=== PATIENT | male | born 1960 | race Caucasian/White ===

== ENCOUNTER 2023-12-08 16:13 | Inpatient (IN) | payer BC, SELFPAY ==
[2023-12-08] VITALS (7 sets, daily range): BP systolic 97–149; BP diastolic 66–87; PULSE 88–109; BMI 28.6
[2023-12-08 12:54] LABS: ALT (SGPT) 26 U/L (0-50); AST (SGOT) 22 U/L (17-59); Albumin 4.5 g/dl (3.5-5.0); Alkaline Phosphatase 49 U/L (38-126); Blood Urea Nitrogen 40 mg/dl (9-20); Calcium 10.1 mg/dl (8.4-10.2); Carbon Dioxide 26 mmol/L (22-30); Chloride 103 mmol/L (98-107); Glucose 146 mg/dl (70-99); Sodium 136 mmol/L (135-145); Total Bilirubin 0.5 mg/dl (0.2-1.3); Total Protein 7.1 g/dl (6.3-8.2); eGFR 56.83
[2023-12-08 13:02] LABS: % Basophils 0.9 % (0-2); % Eosinophils 1.5 % (0-6); % Lymphocytes 9.1 % (20.5-51.1); % Monocytes 6.2 % (1.7-9.3); % Neutrophils 81.3 % (42.2-75.2); Absolute Basophils 0.1 10^3/uL (0-0.2); Absolute Eosinophils 0.2 10^3/uL (0-0.7); Absolute Immature Granulocytes 0.1 10^3/uL (0-0.05); Absolute Lymphocytes 1.3 10^3/uL (1.2-3.4); Absolute Monocytes 0.9 10^3/uL (0.1-0.6); Absolute Neutrophils 11.3 10^3/uL (1.4-6.5); Hematocrit 44.9 % (39.0-52.0); Hemoglobin 14.6 g/dL (13.0-18.0); Mean Corp Hgb Conc. 32.5 g/dL (33.0-37.0); Mean Corpuscular Hgb 26.3 pg (27.0-31.0); Mean Corpuscular Volume 80.8 fL (80.0-94.0); Mean Platelet Volume 9.4 fL (7.4-10.4); Nucleated Red Blood Cells % 0 % (-); Platelet Count 645 10^3/uL (130-400); Red Blood Cell Count 5.56 10^6/uL (4.70-6.10); Red Cell Dist. Width 15.1 % (11.5-14.5); White Blood Cell Count 13.9 10^3/uL (4.8-10.8)
--- NOTE | 2023-12-08 15:48 | ED.GENMED ---
History of Present Illness
General
Chief Complaint: Rectal Bleeding
Source: patient
Exam Limitations: none
Time Seen by Provider: 12/08/23 13:33
Travel History
Have you had any contact with someone who has COVID-19?: No
Do you have any symptoms of coronavirus? Fever > 100 degrees, chills, cough, shortness of breath, sore throat, loss of taste or smell, muscle aches, or headache?: No
History of Present Illness
History of Present Illness:
63-year-old male started with rectal bleeding last evening. Multiple episodes. Moderate in amount. Patient was hypotensive is at his physician's office. Some minimal lower abdominal pain. No other complaints. No history. No thinners.
Past History
Past History
ED Past Medical History: Asthma, GERD, Hypercholesterolemia and Psychiatric (Anxiety and depression ); Negative HTN
ED Past Surgical History: Orthopedic and Other (Sinus surgery)
Social History
Tobacco: Non-smoker
Alcohol: None
Drug: None
Personal:
Living: with family
Employment: Employed
Family History
Family History: Hypertension and CAD
Review of Systems
Review of Systems
All Other Systems: Not applicable
Respiratory: Reports no symptoms
ABD/GI: Denies black stools
Phy Exam
Physical Exam
Physical Exam:
GENERAL: Alert and oriented in no apparent distress
EYE: Orbits normal.
NECK: Supple
CARDIAC: Regular rate and rhythm without any obvious murmurs.
LUNGS: Clear breath sounds,normal
ABDOMEN: Soft, without focal tenderness or distention
NEUROLOGICAL: Alert and oriented , grossly non-focal
SKIN: Warm and dry, no rash or lesion, no discoloration, skin intact.
MUSCULOSKELETAL: No edema,no deformity.Good color
PSYCH: Normal and appropriate interaction.
Course
Orders/Labs/Results
Orders:
Orders
12/08/23 12:21
Cardiac Monitoring- Treatment ONCE
IV Insert/Care/Rem.- Treatment PRN
O2 Therapy [RESP] Urgent
Titrate/Wean O2 to maintain O2 sat greater than (%): 93
Special Instructions: MAINTAIN CONTINOUS O2 SATS > OR = 93%
Pulse Ox/spot Check [RESP] Urgent
Quantity: 1
Special Instructions: ON ROOM AIR
12/08/23 12:22
ECG [Electrocardiogram (*1)] Urgent
Reason for Study: Vertigo / Dizzy
EKG- Treatment ONCE
12/08/23 12:32
Type+Screen Urgent
Complete Blood Count/With Diff Urgent
Comprehensive Metabolic Panel Urgent
12/08/23 13:53
CT Abd/Pel (IV only)-DH only Urgent
Comment:
Reason For Exam: Left lower quadrant pain/rectal bleeding
12/08/23 16:04
Admit/Transfer Patient As Directed
Co-Sign Provider:
Level of Care: Inpatient admission
Assign to:: Telemetry
Physician / Group: Dr Coughlin
Diagnosis: GI bleed
Reason for Telemetry: Arrhythmia
Date to Stop Telemetry: 12/11/23
Time to Stop Telemetry: 11:00
Reason for Hospitalization: pte p/w gi bleed and recently hypotensive and anemia and clifford
Expected length of stay greater than two midnights?: Yes
ELOS- Estimated Length of Stay in days: 2
I certify the patient meets the requirements for IP care: Yes
12/08/23 16:06
Code Status As Directed
Resuscitation Status: Full Code
12/11/23 11:00
DC Protocol for Telemetry ONCE
Abnormal Lab Results
12/08/23
12:32
WBC 13.9 H 10^3/uL
(4.8-10.8)
MCH 26.3 L pg
(27.0-31.0)
MCHC 32.5 L g/dL
(33.0-37.0)
RDW 15.1 H %
(11.5-14.5)
Plt Count 645 H 10^3/uL
(130-400)
Abs Immat Gran (auto) 0.1 H 10^3/uL
(0-0.05)
Absolute Neuts (auto) 11.3 H 10^3/uL
(1.4-6.5)
Absolute Monos (auto) 0.9 H 10^3/uL
(0.1-0.6)
Immature Gran % 1.0 H %
(0-0.5)
Neutrophils % 81.3 H %
(42.2-75.2)
Lymphocytes % 9.1 L %
(20.5-51.1)
Potassium 6.0 H mmol/L
(3.5-5.1)
BUN 40 H mg/dl
(9-20)
Creatinine 1.4 H mg/dL
(0.7-1.3)
Glucose 146 H mg/dl
(70-99)
12/08/23 12:32
12/08/23 12:32
Vital Signs
Initial and Last Documented VS:
Initial Vital Signs
Temp Pulse Resp BP Pulse Ox
98.8 F 92 22 113/66 98
12/08/23 12:16 12/08/23 12:16 12/08/23 12:16 12/08/23 12:16 12/08/23 12:16
Last Documented Vital Signs
Temp Pulse Resp BP Pulse Ox
98.8 F 92 16 116/71 95
12/08/23 12:16 12/08/23 14:21 12/08/23 14:21 12/08/23 16:35 12/08/23 16:36
*Radiology
Radiology exam reviewed: radiology read reviewed (Diverticulosis. No diverticulitis)
*Pulse Oximetry
Patient hypoxic: no
*Critical Care Note
Total Time (30-74mins, 75-104mins- exclusive of procedures): Not Applicable
Update Note
Update Note:
Consent signed. No transfusion needed at this time. However patient's picture and description of amount of bleeding is moderate in nature and warrants inpatient management.
ED Attending Note
-
Portions of this chart may have been created with voice recognition software.� Occasional wrong word or��sound alike� substitutions may have occurred due to the inherent limitations of voice recognition software.
Discharge Plan
Departure
Patient Disposition: Admit
Date of Disposition: 12/08/23
Time of Disposition: 15:49
Presentation/result/management discussed w/ accepting MD/DO: Hospitalist
Discharge Problem:
Lower GI bleed
Interventions
Interventions:
*Risk Screen - Suicide Last Done: 12/08/23 12:16
*General Assessment Last Done: 12/08/23 12:16
*Neglect/Abuse Screening Last Done: 12/08/23 12:16
ED- Fall Risk Assessment Last Done: 12/08/23 14:18
LF-Jqvddf-Lwopwzfbtj Assessment Last Done: 12/08/23 14:18
ED- Cardiac Assessment Last Done: 12/08/23 14:18
ED- Pulmonary Assessment Last Done: 12/08/23 14:18
--- NOTE | 2023-12-08 16:08 | HPS.HSE ---
Family Physician
-
Family Physician: Rowan Ladd MD
Chief Complaint
-
Rectal bleeding
History of Present Illness
Patient is 63 years old male with history of hypertension, hyperlipidemia, asthma, diabetes mellitus, presented to the hospital with bright blood per rectum. Patient started having some rectal bleeding since last night with multiple episodes of
painless bleeding. He tells me after treatment he has these multiple episodes and he counted about 10-20 episodes. His blood blood per rectum along with mixed stool. He denies abdominal pain. He did have some nausea but no vomiting or fevers or
chills. No anticoagulants. He does take aspirin on a regular basis. He denies any regular NSAIDs use. No chest pain or shortness of breath. He has had colonoscopies in the past that showed diverticular disease and some adenomas/polyps. In the
ED, hemoglobin 14.6 but that was about 4 hours prior to my evaluation so we will repeat it again stat; also potassium 6 about 4 hours ago so we will repeat stat by the time of my evaluation. He had an abdominal CT scan that shows diverticulosis and
some nonspecific findings in the liver pancreas spleen and kidneys. He was referred to hospitalist for further evaluation.
Medical History
Past Medical History
Past Medical History: Reports Other (Hypertension, hyperlipidemia, diabetes mellitus type 2, asthma.)
Past Surgical History: Reports None
Social History
Tobacco: Non-smoker
Alcohol: Occasional
Drug: None
Family History
Family History: Diabetes and Hypertension
Allergies / Home Medications
Allergies reflects when Allergies were last updated in [email or web address].
Home Medications with original date entered in [email or web address]
Allergy/Medication List:
Allergies
Allergy/AdvReac Type Severity Reaction Status Date / Time
No Known Allergies Allergy Verified 12/08/23 12:16
Home Medications
albuterol sulfate 90 mcg/actuation aerosol inhaler (Proventil HFA) 1 puff inhalation R Q6HPRN PRN sob 09/04/09
montelukast 10 mg tablet 10 mg PO HS 09/04/09
sertraline 100 mg tablet 150 mg PO DAILY 09/04/09
sitagliptin phosphate 50 mg-metformin 1,000 mg tablet (Janumet) 1 tab PO BID 05/16/10
aspirin 81 mg tablet,delayed release 81 mg PO QPM 12/08/23
canagliflozin 100 mg tablet (Invokana) 100 mg PO QPM 12/08/23
ergocalciferol (vitamin D2) 1,250 mcg (50,000 unit) capsule 1,250 mcg PO SA 12/08/23
fenofibrate micronized 67 mg capsule 67 mg PO DAILY 12/08/23
fluticasone propionate 50 mcg/actuation nasal spray,suspension 1 spray intranasal DAILY 12/08/23
losartan 50 mg tablet 50 mg PO DAILY 12/08/23
mometasone-formoterol HFA 200 mcg-5 mcg/actuation aerosol inhaler (Dulera) 2 puff inhalation R BID 12/08/23
nystatin-triamcinolone 100,000 unit/g-0.1 % topical cream 1 applic topical DAILYPRN PRN random hives on body 12/08/23
rabeprazole 20 mg tablet,delayed release (AcipHex) 20 mg PO DAILY 12/08/23
repaglinide 1 mg tablet 1 mg PO BID@0800,1700 12/08/23
repaglinide 1 mg tablet 2 mg PO NOON 12/08/23
rosuvastatin 20 mg tablet (Crestor) 20 mg PO HS 12/08/23
Review of Systems
-
A 12 point ROS was completed and negative except as noted: Yes
Physical Exam
Vital Signs
Vital Signs
Temp Pulse Resp BP Pulse Ox
98.8 F 87 15 103/72 94
12/08/23 12:16 12/08/23 14:15 12/08/23 14:15 12/08/23 14:00 12/08/23 14:15
Physical exam:
General: Acutely ill
HEENT: Normocephalic, Atraumatic and Moist Mucous Membranes
Respiratory: Clear to Auscultation; Negative Wheezes, Rales or Rhonchi
Cardiac: Regular Rhythm and S1/S2
GI: Soft, Nontender and Nondistended
Musculoskeletal: No Clubbing, No Cyanosis and No Edema
Neuro: Awake, Alert and Oriented
Psych: Calm
Physical Exam
General: Other
Laboratory Results
-
12/08/23 12:32
12/08/23 12:32
Laboratory Results
PT Cancelled 12/08/23 12:48
INR Cancelled 12/08/23 12:48
APTT Cancelled 12/08/23 12:48
Total Bilirubin 0.5 mg/dl (0.2-1.3) 12/08/23 12:32
AST 22 U/L (17-59) 12/08/23 12:32
ALT 26 U/L (0-50) 12/08/23 12:32
Alkaline Phosphatase 49 U/L (38-126) 12/08/23 12:32
Impression/Plan
-
IMPRESSION:
Patient is 63 years old male with multiple comorbidities came into the hospital with acute GI bleed. Patient presents with lower GI bleed. He had episode of hypotension prior to admission. He is also in acute kidney injury. Given patient's acute
presentation and comorbidities he is at increased risk of morbidity mortality so he will need to be treated in the hospital and manage accordingly and monitor for progress and or toxicity.
PLAN:
Acute GI bleed:
Suspect lower GI bleed, probably diverticular in nature
Monitor hemoglobin
Clear liquid diet
GI consult (Donaldson texted GI today)
Rule out acute blood loss anemia:
-Blood transfusion consent obtained and type and screen
-Hemoglobin upon admission 14.6 and will repeat stat now
-Monitor hemoglobin every 6 hours and transfuse as needed
Hyperkalemia:
-Repeat potassium stat and will medicate if needed depending on results but it could be hemolysis sample
-Hold ARB
-IV fluids
-Cardiac monitoring
Leukocytosis:
Reactive versus infectious
Monitor trend
Acute kidney injury:
IV fluids, normal saline 100 ml per hour
Check bladder scan as well
Avoid nephrotoxic
Monitor renal function closely
Monitor urine output
Creatinine today 1.4
Last creatinine 1.2 back in 2018
Hypertension:
Hold antihypertensives
Will resume antihypertensive once known blood pressure stable and starts to go up consistently
Hyperlipidemia:
Continue statins
Diabetes mellitus type 2:
Hold oral hypoglycemics
Insulin sliding scale
Monitor blood sugars and adjust medications according
DVT prophylaxis:
SCDs
CODE STATUS:
Full code
Total time spent on today's encounter was 75 minutes which included time spent in counseling the patient/family regarding diagnosis and treatment plan as listed above, goals of care, and symptom management. Case was discussed with nursing staff,
specialists, and care coordinators/case management. All labs and imaging personally reviewed by me. Remainder the time spent in detailed review of previous records, lab data, imaging, and other medical provider documentation.
[2023-12-08 17:04] LABS: Hematocrit 42.2 % (39.0-52.0); Hemoglobin 14.1 g/dL (13.0-18.0)
[2023-12-08 17:17] LABS: Blood Urea Nitrogen 38 mg/dl (9-20); Calcium 9.8 mg/dl (8.4-10.2); Carbon Dioxide 21 mmol/L (22-30); Chloride 105 mmol/L (98-107); Glucose 116 mg/dl (70-99); Potassium 4.9 mmol/L (3.5-5.1); Sodium 133 mmol/L (135-145); eGFR > 60.00
[2023-12-08] MEDS: PROTONIX IV 40 MG IV (18:03)
[2023-12-08] MEDS: NSS (PRESERVATIVE FREE) 10 ML IV (18:03)
[2023-12-08] MEDS: NSS 1000 IV (18:05)
[2023-12-08 18:08] LABS: Glucose - Point of Care 143 mg/dl (70-99)
[2023-12-08] MEDS: SYMBICORT 160/4.5 MCG INHALER 2 PUFF INH (19:36)
[2023-12-08] MEDS: PRANDIN PO (20:00)
[2023-12-08 20:01] LABS: Hematocrit 40.4 % (39.0-52.0); Hemoglobin 13.4 g/dL (13.0-18.0)
[2023-12-08] MEDS: SINGULAIR 10 MG PO (20:01)
[2023-12-08] MEDS: CRESTOR 20 MG PO (20:01)
[2023-12-08 21:57] LABS: Glucose - Point of Care 124 mg/dl (70-99)
[2023-12-09 02:09] LABS: Hematocrit 40.6 % (39.0-52.0); Hemoglobin 13.2 g/dL (13.0-18.0)
[2023-12-09 03:50] VITALS: BP 144/86
[2023-12-09] MEDS: NSS 1000 IV ×2 (04:02→16:07)
[2023-12-09 06:00] VITALS: BMI 28.4
[2023-12-09 07:35] VITALS: BP 128/81; BP 155/80; PULSE 100; PULSE 92
[2023-12-09] MEDS: SYMBICORT 160/4.5 MCG INHALER 2 PUFF INH ×2 (07:35→19:26)
[2023-12-09 08:03] LABS: Glucose - Point of Care 166 mg/dl (70-99)
[2023-12-09] MEDS: TRICOR 48 MG PO (08:34)
[2023-12-09] MEDS: PRANDIN 1 MG PO ×2 (08:34→16:20)
[2023-12-09] MEDS: ZOLOFT 150 MG PO (08:34)
[2023-12-09] MEDS: PROTONIX IV 40 MG IV ×2 (08:35→21:10)
[2023-12-09] MEDS: NSS (PRESERVATIVE FREE) 10 ML IV ×2 (08:35→21:10)
[2023-12-09 08:37] LABS: Hematocrit 42.8 % (39.0-52.0); Hemoglobin 13.7 g/dL (13.0-18.0); Mean Corpuscular Hgb 26.1 pg (27.0-31.0); Mean Corpuscular Volume 81.5 fL (80.0-94.0); Mean Platelet Volume 9.2 fL (7.4-10.4); Platelet Count 548 10^3/uL (130-400); Red Blood Cell Count 5.25 10^6/uL (4.70-6.10); White Blood Cell Count 11.1 10^3/uL (4.8-10.8)
[2023-12-09 08:56] LABS: Blood Urea Nitrogen 29 mg/dl (9-20); Calcium 9.5 mg/dl (8.4-10.2); Carbon Dioxide 21 mmol/L (22-30); Chloride 105 mmol/L (98-107); Estimated Creatinine Clearance 80 ml/min; Glucose 145 mg/dl (70-99); Potassium 4.8 mmol/L (3.5-5.1); Sodium 134 mmol/L (135-145); eGFR > 60.00
--- NOTE | 2023-12-09 09:23 | W.PN.HOSP.TC ---
Today's Communication/Plan
-
Advance diet. Monitor hemoglobin
Assessment / Plan
Assessment / Plan
Physical exam:
General: Well Developed, Well Nourished and No Apparent Distress
HEENT: Normocephalic, Atraumatic and Moist Mucous Membranes
Respiratory: Clear to Auscultation; Negative Wheezes, Rales or Rhonchi
Cardiac: Regular Rhythm and S1/S2
GI: Soft, Nontender and Nondistended
Musculoskeletal: No Clubbing, No Cyanosis and No Edema
Neuro: Awake, Alert and Oriented
Psych: Calm
A/P:
Acute GI bleed:
Suspect lower GI bleed, probably diverticular in nature
Monitor hemoglobin
Clear liquid diet--> advance to full liquid diet today.
GI consult appreciated
Updated at bedside
Rule out acute blood loss anemia:
-Blood transfusion consent obtained and type and screen
-Hemoglobin upon admission 14.6
-Today hemoglobin 13.7
Hyperkalemia due to hemolysis:
Repeated potassium normal
Leukocytosis:
Reactive versus infectious
Monitor trend
Acute kidney injury:
Creatinine 1.2
Creatinine upon admission 1.4
On IV fluids
Hypertension:
Cont to hold antihypertensives and resume in am
Hyperlipidemia:
Continue statins
Diabetes mellitus type 2:
Continue to hold oral hypoglycemics
Insulin sliding scale
Monitor blood sugars and adjust medications according
DVT prophylaxis:
SCDs
CODE STATUS:
Full code
Anticipated Discharge: Within 24 hours
Subjective/Interval History
-
Date of Service: December 09, 2023
No bowel movement today. No abdominal pain nausea or vomiting.
Objective Data
-
Labs:
Laboratory Results
12/09/23 12/09/23 12/09/23
01:57 08:05 08:05
WBC 11.1 H
Hgb 13.2 13.7 Cancelled
Hct 40.6 42.8
Plt Count
Sodium
Potassium
Chloride
Carbon Dioxide
BUN
Creatinine
Glucose
Calcium
12/09/23
08:05
WBC
Hgb
Hct Cancelled
Plt Count 548 H
Sodium 134 L
Potassium 4.8
Chloride 105
Carbon Dioxide 21 L
BUN 29 H
Creatinine 1.2
Glucose 145 H
Calcium 9.5
Vital Signs:
Vital Signs
Temp Pulse Resp BP Pulse Ox
98.6 F 97 16 128/81 95
12/09/23 07:35 12/09/23 07:40 12/09/23 07:40 12/09/23 07:35 12/09/23 07:40
[2023-12-09] MEDS: ANESTHETIC LOZENGE 1 LOZENGE PO (10:17)
[2023-12-09 10:24] LABS: Glycohemoglobin (HgbA1c) 6.9 % (4.0-5.6)
[2023-12-09 11:23] VITALS: BP 121/84; BP 128/84; BP 144/81; PULSE 101; PULSE 112; PULSE 90
[2023-12-09 11:41] LABS: Glucose - Point of Care 141 mg/dl (70-99)
[2023-12-09] MEDS: PRANDIN 2 MG PO (12:20)
--- NOTE | 2023-12-09 12:51 | CON.GI ---
Consultation
-
Date/Time Consultation Requested: 12/08/2023
Date/Time Consultation Performed: 12/09/2023
Requesting Provider: Dr. Coughlin
Performing Provider: Dr. Golden
Reason for Consultation: Rectal bleeding
Medical History
Chief Complaint / HPI
Chief Complaint: Rectal bleeding
History of Present Illness:
63-year-old male with history of high cholesterol, diabetes, asthma presenting with complaints of multiple episodes of dark red bloody bowel movements starting Sunday night, reports having up to 11 or 12 bowel movements up until Sunday morning.
Last bowel movement was Sunday at 9:30 AM. He went to the PCPs office, his blood pressure was noted to be about 82/60 and was asked to come to the emergency room. Prior to this, he reports that he has been having some straining with bowel
movements for couple of days but his normal bowel baseline bowel pattern is 2-5 softly formed stool on a regular daily basis. Occasional wipe type bleeding from hemorrhoids, was seen by colorectal surgery and treated with hemorrhoidal cream and was
doing well. He had some mild discomfort in the lower abdomen but nothing bothersome. No nausea, vomiting, heartburn or trouble swallowing. No NSAID use. No loss of appetite or unintentional weight loss. Was lightheaded and dizzy yesterday but
not since. Movements since Sunday 9:30 AM.
Colonoscopy in June [address] Pickard, diverticulosis, tubular adenomas removed from the ascending, hepatic flexure and descending colons. Colonoscopy with polyps in 2016 and 2012.Upper endoscopy in 2012, no evidence of H. pylori or
eosinophilic esophagitis.
In the emergency room, hemoglobin was noted to be 13.4, today it is 13.7. Mild leukocytosis.
CT angiogram-Diverticulosis. No evidence of acute diverticulitis. Stable Mild fecal material throughout the colon. Improved.Hepatic fatty infiltration. Mild splenomegaly. Pancreatic fatty infiltration. Progressed.Too small to characterize hypodense
hepatic lesions likely small cysts or hemangiomas. Stable
Past Medical History
Past Medical History: Asthma, Hypercholesterolemia and NIDDM
Past Surgical History: Other (Inguinal hernia repair)
Social History
Tobacco: Non-Smoker
Alcohol: Occasional
Family History
Family History: Reviewed & Not Pertinent
Allergies / Home Medications
Allergy/AdvReac Type Severity Reaction Status Date / Time
No Known Allergies Allergy Verified 12/08/23 12:16
�Medication �Instructions �Recorded
albuterol sulfate 90 mcg/actuation 1 puff inhalation R Q6HPRN PRN sob 09/04/09
aerosol inhaler (Proventil HFA)
montelukast 10 mg tablet 10 mg PO HS 09/04/09
sertraline 100 mg tablet 150 mg PO DAILY 09/04/09
sitagliptin phosphate 50 1 tab PO BID 05/16/10
mg-metformin 1,000 mg tablet
(Janumet)
aspirin 81 mg tablet,delayed 81 mg PO QPM 12/08/23
release
canagliflozin 100 mg tablet 100 mg PO QPM 12/08/23
(Invokana)
ergocalciferol (vitamin D2) 1,250 1,250 mcg PO SA 12/08/23
mcg (50,000 unit) capsule
fenofibrate micronized 67 mg 67 mg PO DAILY 12/08/23
capsule
fluticasone propionate 50 1 spray intranasal DAILY 12/08/23
mcg/actuation nasal
spray,suspension
losartan 50 mg tablet 50 mg PO DAILY 12/08/23
mometasone-formoterol HFA 200 2 puff inhalation R BID 12/08/23
mcg-5 mcg/actuation aerosol
inhaler (Dulera)
nystatin-triamcinolone 100,000 1 applic topical DAILYPRN PRN 12/08/23
unit/g-0.1 % topical cream random hives on body
rabeprazole 20 mg tablet,delayed 20 mg PO DAILY 12/08/23
release (AcipHex)
repaglinide 1 mg tablet 1 mg PO BID@0800,1700 12/08/23
repaglinide 1 mg tablet 2 mg PO NOON 12/08/23
rosuvastatin 20 mg tablet (Crestor) 20 mg PO HS 12/08/23
Review of Systems
-
All other systems: A 12 pt ROS was Negative except as stated above in HPI
Vital Signs
Temp Pulse Resp BP Pulse Ox
97.7 F 90 18 144/81 96
12/09/23 11:23 12/09/23 11:23 12/09/23 11:23 12/09/23 11:23 12/09/23 11:23
Physical Exam
Exam
HEENT: Normocephalic
Respiratory: Clear
Cardiac: S1/S2 and Regular Rhythm
GI: Soft, Non Distended and Normal Bowel Sounds
Rectal: Red
Neuro: AO x 3
Results
WBC 11.1 10^3/uL (4.8-10.8) H 12/09/23 08:05
Hgb 13.7 g/dL (13.0-18.0) 12/09/23 08:05
Hgb Cancelled 12/09/23 08:05
Hct 42.8 % (39.0-52.0) 12/09/23 08:05
Hct Cancelled 12/09/23 08:05
MCV 81.5 fL (80.0-94.0) 12/09/23 08:05
Plt Count 548 10^3/uL (130-400) H 12/09/23 08:05
Absolute Neuts (auto) 11.3 10^3/uL (1.4-6.5) H 12/08/23 12:32
PT Cancelled 12/08/23 12:48
INR Cancelled 12/08/23 12:48
APTT Cancelled 12/08/23 12:48
Sodium 134 mmol/L (135-145) L 12/09/23 08:05
Potassium 4.8 mmol/L (3.5-5.1) 12/09/23 08:05
Chloride 105 mmol/L (98-107) 12/09/23 08:05
Carbon Dioxide 21 mmol/L (22-30) L 12/09/23 08:05
BUN 29 mg/dl (9-20) H 12/09/23 08:05
Creatinine 1.2 mg/dL (0.7-1.3) 12/09/23 08:05
Calcium 9.5 mg/dl (8.4-10.2) 12/09/23 08:05
Total Bilirubin 0.5 mg/dl (0.2-1.3) 12/08/23 12:32
AST 22 U/L (17-59) 12/08/23 12:32
ALT 26 U/L (0-50) 12/08/23 12:32
Alkaline Phosphatase 49 U/L (38-126) 12/08/23 12:32
Diagnostic Image Results:
Prior GI Procedures:
EGD: Upper endoscopy in 2012, no H. pylori or eosinophilic esophagitis
Colonoscopy: [address] Pickard, diverticulosis and polyps-tubular adenomas removed from ascending colon, hepatic flexure and descending colon.
Assessment / Plan
-
63-year-old male with history of high cholesterol, diabetes, asthma presenting with painless rectal bleeding since Sunday night, currently no further bleeding in the last 24 hours, CT angiogram negative for any active bleeding, no significant drop
in hemoglobin. Colonoscopy June 2023 showing diverticulosis and polyps.
-Painless rectal bleeding, likely diverticular
-Colon polyps
-Fatty liver
-Painless rectal bleeding without significant drop in hemoglobin hemodynamically stable
Likely diverticular bleed that seems to be resolving
Tolerating clear liquid diet
Monitor H&H and transfuse if needed
Will advance to full liquid diet for now. If tolerating, tomorrow will advance to low residue diet.
If the bleeding recurs, will put him back on clear liquid diet and will plan for colonoscopy.
Will follow
-
-
Thank you for consultation and allowing me to participate in the patient's care. Please call the television presenter GI physician during the after hours with any questions or concerns.
--- NOTE | 2023-12-09 12:55 | CM ---
met with patient at bedside.he lives with his in 2 story home with 1 brandy,his bed and bath is on the second floor,he is totally independent.he is a diabetic and has a free style III glucose monitoring system.his pcp is dr payne from [facility] and
he uses [facility] on in [place] for his meds.
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
needs.
[2023-12-09 15:30] VITALS: BP 127/91; BP 141/90; BP 145/87; PULSE 108; PULSE 90; PULSE 92
[2023-12-09 16:21] LABS: Glucose - Point of Care 89 mg/dl (70-99)
[2023-12-09 19:30] VITALS: BP 114/72; BP 121/80; BP 126/86; PULSE 102; PULSE 114; PULSE 94
[2023-12-09] MEDS: CRESTOR 20 MG PO (21:11)
[2023-12-09] MEDS: SINGULAIR 10 MG PO (21:11)
[2023-12-09 21:51] LABS: Glucose - Point of Care 101 mg/dl (70-99)
[2023-12-09 23:35] VITALS: BP 153/95
[2023-12-10 03:40] VITALS: BP 151/89
[2023-12-10] MEDS: NSS 1000 IV (05:54)
[2023-12-10] MEDS: SYMBICORT 160/4.5 MCG INHALER 2 PUFF INH (07:35)
[2023-12-10 07:40] LABS: Hematocrit 42.4 % (39.0-52.0); Hemoglobin 13.8 g/dL (13.0-18.0)
[2023-12-10 08:26] LABS: Glucose - Point of Care 121 mg/dl (70-99)
[2023-12-10 08:30] VITALS: BP 144/87
[2023-12-10] MEDS: PRANDIN 1 MG PO (08:50)
[2023-12-10] MEDS: ZOLOFT 150 MG PO (08:50)
[2023-12-10] MEDS: PROTONIX IV 40 MG IV (08:50)
[2023-12-10] MEDS: TRICOR 48 MG PO (08:50)
[2023-12-10] MEDS: NSS (PRESERVATIVE FREE) 10 ML IV (08:50)
[2023-12-10] MEDS: FLUSH (NSS) 1 FLUSH IV (08:51)
--- NOTE | 2023-12-10 09:44 | W.PN.HOSP.TC ---
Today's Communication/Plan
-
Continue current management. Discharge planning once cleared by GI.
Assessment / Plan
Assessment / Plan
Physical exam:
General: Well Developed, Well Nourished and No Apparent Distress
HEENT: Normocephalic, Atraumatic and Moist Mucous Membranes
Respiratory: Clear to Auscultation; Negative Wheezes, Rales or Rhonchi
Cardiac: Regular Rhythm and S1/S2
GI: Soft, Nontender and Nondistended
Musculoskeletal: No Clubbing, No Cyanosis and No Edema
Neuro: Awake, Alert and Oriented
Psych: Calm
A/P:
Acute GI bleed:
Suspect lower GI bleed, probably diverticular in nature
Monitor hemoglobin
Clear liquid diet--> advanced to full liquid diet yesterday by GI.
GI consult appreciated--> we will follow-up GI further recommendations
Rule out acute blood loss anemia:
-Blood transfusion consent obtained and type and screen
-Hemoglobin upon admission 14.6
-Today hemoglobin 13.8
Hyperkalemia due to hemolysis:
Repeated potassium normal
Leukocytosis:
Reactive versus infectious
Monitor trend
Acute kidney injury:
Creatinine 1.2
Creatinine upon admission 1.4
On IV fluids
Hypertension:
Cont to hold antihypertensives and resume today and upon discharge
Hyperlipidemia:
Continue statins
Diabetes mellitus type 2:
Continue to hold oral hypoglycemics and resume upon discharge
Insulin sliding scale
Monitor blood sugars and adjust medications according
DVT prophylaxis:
SCDs
CODE STATUS:
Full code
Anticipated Discharge: Today
Subjective/Interval History
-
Date of Service: December 10, 2023
Patient denies any blood blood per rectum or melena but no bowel movement. Denies any abdominal pain. No chest pain or shortness of breath
Objective Data
-
Labs:
Laboratory Results
12/10/23
06:59
Hgb 13.8
Hct 42.4
Vital Signs:
Vital Signs
Temp Pulse Resp BP Pulse Ox
97.7 F 86 16 144/87 95
12/10/23 08:30 12/10/23 08:30 12/10/23 08:30 12/10/23 08:30 12/10/23 08:47
I&O
12/09/23 12/10/23 12/11/23
06:59 06:59 06:59
Intake Total 1200 / 1200
Balance 1200 / 1200
--- NOTE | 2023-12-10 10:34 | W.PN.GI.CBS2 ---
Today's Communication / Plan
-
Likely diverticular bleeding now resolving
hbg stable 13.8
will advance diet to ADA/low residue diet
return for any recurrent bleeding
follow up colonoscopy due 2025 as just completed last fall unless recurrent bleeding consider sooner
if tolerates diet and no further stools stable from GI for discharge
sent message to Dr. Coughlin as pt asking for discharge
Assessment / Plan
-
63-year-old male with history of high cholesterol, diabetes, asthma presenting with painless rectal bleeding since Sunday night that improved after admission. CT angiogram negative for any active bleeding, no significant drop in hemoglobin.
Colonoscopy June 2023 showing diverticulosis and polyps.
-Painless rectal bleeding, likely diverticular
-Colon polyps
-Fatty liver
-hx DM
-hx Asthma
PLAN:
Likely diverticular bleeding now resolving
hbg stable 13.8
will advance diet to ADA/low residue diet
return for any recurrent bleeding
follow up colonoscopy due 2025 as just completed last fall unless recurrent bleeding consider sooner
if tolerates diet and no further stools stable from GI for discharge
sent message to Dr. Coughlin as pt asking for discharge
Subjective
Subjective
Date of Service: December 10, 2023
no further bleeding on full liquid diet feeling well asking about discharge
Objective
Data Reviewed
Laboratory Data:
Laboratory Results
12/10/23 06:59
12/09/23 08:05
Laboratory Results
PT Cancelled 12/08/23 12:48
INR Cancelled 12/08/23 12:48
APTT Cancelled 12/08/23 12:48
Total Bilirubin 0.5 mg/dl (0.2-1.3) 12/08/23 12:32
AST 22 U/L (17-59) 12/08/23 12:32
ALT 26 U/L (0-50) 12/08/23 12:32
Alkaline Phosphatase 49 U/L (38-126) 12/08/23 12:32
Vital Signs and I&O:
Vital Signs
Temp Pulse Resp BP Pulse Ox
97.7 F 86 16 144/87 95
12/10/23 08:30 12/10/23 08:30 12/10/23 08:30 12/10/23 08:30 12/10/23 08:47
I&O
12/09/23 12/10/23 12/11/23
06:59 06:59 06:59
Intake Total 1200 / 1200
Balance 1200 / 1200
Physical Exam
Physical Exam
HEENT: Anicteric and Moist mucous membranes
Cardiology: Normal Sinus Rhythm
Pulmonary: Clear
GI: Soft, Non Distended and Non Tender
Extremities: No Edema
Neuro: Non Focal
--- NOTE | 2023-12-10 11:37 | W.DCSUMMARY ---
Discharge Summary
Discharge Data
Date of Admission: 12/08/23
Date of Discharge: 12/10/23
-
Pending Results: No
Hospital Course
Patient 63 years old male with history hypertension, diabetes mellitus, asthma, presented to the hospital with bright blood per rectum. GI consulted. Patient was kept on clear liquid diet and monitor for any signs of recurrent bleeding. His
hemoglobin remained stable. Patient bleeding slowed down and has not had any further bleeding. GI felt that this was diverticular in etiology. Diet has been advanced without any problems. GI cleared him for discharge. Patient will be discharged
in stable condition today.
Discharge Plan
-
Patient Disposition: Home (Routine Discharge)
Discharge Diagnosis/Procedures: Acute gastrointestinal bleed likely due to diverticular disease. Acute blood loss anemia. Acute kidney injury.
Diet: Low Fiber and Diabetic, Carb Controlled
Additional Diets: low fiber diet for 2 weeks then advance
Blood Work: Please PCP to order CBC, BMP within 1 week
Others Tests: return to ER for any recurrent bleeding or problems
Referrals:
Rowan Ladd MD [Family Provider] - in less than 1 week
Helene Golden MD [Active] - in four to six weeks
Prescriptions:
Continued
montelukast 10 MG tablet
10 mg PO HS
albuterol sulfate [Proventil HFA] 6.7 GM HFA aerosol inhaler
1 puff inhalation R Q6HPRN PRN (Reason: sob)
sertraline 100 MG tablet
150 mg PO DAILY
Janumet 50-1,000 mg Tablet
1 tab PO BID
losartan 50 mg Tablet
50 mg PO DAILY
rabeprazole [AcipHex] 20 mg Tablet,Delayed Release (Dr/Ec)
20 mg PO DAILY
fenofibrate micronized 67 mg Capsule
67 mg PO DAILY
aspirin 81 mg Tablet,Delayed Release (Dr/Ec)
81 mg PO QPM
nystatin-triamcinolone 100,000-0.1 unit/g-% cream
1 applic TOPICAL DAILYPRN PRN (Reason: random hives on body)
ergocalciferol (vitamin D2) 1,250 mcg (50,000 unit) Capsule
1,250 mcg PO SA
fluticasone propionate [Flonase] 50 mcg/actuation [place],Suspension
1 spray INTRANASAL DAILY
repaglinide 1 mg Tablet
1 mg PO BID@0800,1700
repaglinide 1 mg Tablet
2 mg PO NOON
rosuvastatin [Crestor] 20 mg Tablet
20 mg PO HS
Dulera 200-5 mcg/actuation Hfa Aerosol Inhaler
2 puff INHALATION R BID
Invokana 100 mg Tablet
100 mg PO QPM
Discharge Date and Time
Print Language: CHADIAN
[2023-12-10] MEDS: COZAAR 50 MG PO (11:48)
[2023-12-10 11:49] LABS: Glucose - Point of Care 96 mg/dl (70-99)
[2023-12-10] MEDS: PRANDIN 2 MG PO (11:51)
--- NOTE | 2023-12-10 12:23 | CM ---
CM following re: discharge planning.
Reviewed pt's chart, met with pt.
Discharge order noted. Pt is aware, expressed his agreement with discharge and pt stated his spouse is coming to transport him home.
Pt reports he is independent in all areas [employer] and does not need after care VN services.
D/C plan: home with no needs. Spouse to transport.
CM will follow with discharge plan updates as hospitalization progresses
[2023-12-10 12:57] VITALS: BP 140/87
[2023-12-10 20:58] LABS: Hepatitis C Antibody Negative (Negative)
== END 2023-12-10 13:33 | disposition home or self-care (01) | DRG 378 ==
LOC: 4 EAST ACU 16:13
PROVIDERS: ADMITTING PHYSICIAN Hospitalist; CONSULT PHYSICIAN Internal Medicine Gastroenterology; EMERGENCY PHYSICIAN Emergency Medicine; FAMILY PHYSICIAN Student in an Organized Health Care Education/Training Program
DX: K92.2 Gastrointestinal hemorrhage, unspecified (principal); D62 Acute posthemorrhagic anemia; N17.9 Acute kidney failure, unspecified; I95.9 Hypotension, unspecified; E87.5 Hyperkalemia; I10 Essential (primary) hypertension; E11.9 Type 2 diabetes mellitus without complications; E78.00 Pure hypercholesterolemia, unspecified
CPT/HCPCS: 74177; 80048; 80053; 82962; 83036; 85014; 85018; 85025; 85027; 86803; 86850; 86900; 86901; 93005; 94640; 94760; 99285; Q9967